=== PATIENT | male | born 1975 | race Caucasian/White ===

== ENCOUNTER 2018-07-05 00:11 | Emergency (ER) | payer OTHER ==
[~2018-07-05] VITALS: Ht 172.7 cm; Wt 95.3 kg
[2018-07-05 00:25] VITALS: BP_SYST 147
--- NOTE | 2018-07-05 00:30 | NUR ---
Patient to ER bed 3 to gown for evaluation. Side rails up.
--- NOTE | 2018-07-05 00:32 | NUR ---
Pt C/O of RLQ abdominal pain x 3 months. Pt states "he has gallstones and is here today to get it taken out". Pt denies any N/V/D, painful urination, or any other complaints at this time. Vital signs are stable, will continue to monitor.
--- NOTE | 2018-07-05 00:36 | NUR ---
ER Dr. Jackman at bedside examining patient.
[2018-07-05] MEDS ORDERED: KETOROLAC TROMETHAMINE 60 MG/2 ML VIAL IM ONE (00:45)
--- NOTE | 2018-07-05 01:00 | NUR ---
VSS, no s/s of acute distress. Resting on gurney with rails up
[2018-07-05 01:10] LABS: HEMATOCRIT 42.5 % (36-54); HEMOGLOBIN 14.4 g/dL (14.0-18.0); MEAN CORPUSCULAR HEMOGLOBIN 31 pg (27-31); MEAN CORPUSCULAR HGB CONC 34 % (32-36); MEAN CORPUSCULAR VOLUME 91 fL (79.0-98.0); RED BLOOD CELL COUNT(AUTO) 4.65 MIL/uL (4.2-6.2); RED CELL DISTRIBUTION WIDTH 12.6 % (9.0-15.0); WHITE BLOOD COUNT (AUTO) 9.3 K/uL (4.8-10.8)
[2018-07-05 01:11] LABS: BASOPHILS # (AUTO) 0.1 K/uL (0.0-0.2); BASOPHILS % (AUTO) 0.8 % (0.0-2.0); EOSINOPHILS # (AUTO) 0.3 K/uL (0.0-0.4); EOSINOPHILS % (AUTO) 2.9 % (0.0-4.0); LYMPHOCYTES # (AUTO) 1.8 K/uL (1.0-5.5); LYMPHOCYTES % (AUTO) 18.9 % (20.5-51.5); MONOCYTES # (AUTO) 0.7 K/uL (0.0-1.0); MONOCYTES % (AUTO) 7.7 % (1.7-9.3); NEUTROPHILS # (AUTO) 6.5 K/uL (1.8-7.7); NEUTROPHILS % (AUTO) 69.7 % (40.0-70.0); PLATELET COUNT (AUTO) 274 K/uL (130-430)
[2018-07-05 01:25] LABS: CREATININE 1.06 mg/dL (0.55-1.30); POTASSIUM 4.1 mmol/L (3.5-5.1)
[2018-07-05 01:29] LABS: ALBUMIN 3.6 g/dL (3.4-4.8); TOTAL BILIRUBIN 0.2 mg/dL (0.0-1.0)
[2018-07-05 01:50] VITALS: BP_SYST 128
--- NOTE | 2018-07-05 01:50 | NUR ---
Patient given written and verbal discharge instructions and verbalizes understanding. ER MD discussed with patient the results and treatment provided. Patient in stable condition. ID arm band removed. Patient educated on pain management and to follow up with PMD. Pain Scale 0/10. Opportunity for questions provided and answered. Medication side effect fact sheet provided.
== END 2018-07-05 01:50 | disposition home or self-care (01) ==
LOC: SED 00:11
DX: K80.50 Calculus of bile duct without cholangitis or cholecystitis without obstruction (principal); F12.10 Cannabis abuse, uncomplicated; R03.0 Elevated blood-pressure reading, without diagnosis of hypertension
CPT/HCPCS: 36415; 80053; 83690; 85025; 96372; 99283; J1885

== ENCOUNTER 2019-04-13 06:49 | Emergency (ER) | payer SELFPAY ==
[~2019-04-13] VITALS: Ht 172.7 cm; Wt 90.7 kg
[2019-04-13 06:52] VITALS: BP_SYST 142
--- NOTE | 2019-04-13 06:56 | NUR ---
EKG given to Dr. Mathews. Pt okay to wait in ER waiting room. Pt talking on cell phone and walking about in waiting room. NAD.
--- NOTE | 2019-04-13 07:05 | NUR ---
Pt placed to ER waiting room in stable condition.
--- NOTE | 2019-04-13 07:35 | NUR ---
Patient to ER bed 7 to gown for evaluation. Side rails up. Report given to ELOINA GEORGE
--- NOTE | 2019-04-13 07:45 | NUR ---
Pt came to ER by himself ambulatory, AO4, c/o chest pain due to coughing. V/S and EKG stable and normal, RR even and unlabored no visible distress
[2019-04-13] MEDS ORDERED: KETOROLAC TROMETHAMINE 60 MG/2 ML VIAL IM ONE (08:00)
--- NOTE | 2019-04-13 08:00 | NUR ---
Dr Daniel at bedside to assess pt
[2019-04-13 08:34] VITALS: BP_SYST 142
--- NOTE | 2019-04-13 08:43 | NUR ---
Patient given written and verbal discharge instructions and verbalizes understanding. ER MD discussed with patient the results and treatment provided. Patient in stable condition. ID arm band removed. Rx Cipro, Motrin, and Prednisone given. Patient educated on pain management and to follow up with PMD. Pain Scale 0. Opportunity for questions provided and answered. Medication side effect fact sheet provided.
== END 2019-04-13 08:43 | disposition home or self-care (01) ==
LOC: SED 06:49
DX: R07.9 Chest pain, unspecified (principal); R19.7 Diarrhea, unspecified; R05 Cough; F17.290 Nicotine dependence, other tobacco product, uncomplicated
CPT/HCPCS: 93005; 96372; 99283

== ENCOUNTER 2019-04-16 07:04 | Emergency (ER) | payer SELFPAY ==
[~2019-04-16] VITALS: Ht 172.7 cm; Wt 95.3 kg
--- NOTE | 2019-04-16 07:05 | NUR ---
Patient to ER bed hallway to gown for evaluation. Side rails up.
--- NOTE | 2019-04-16 07:20 | NUR ---
Patient is awake, alert, and oriented x4. Patient reports eating 2 [employer] prior to abdominal pain starting at 0500 today. Patient presents with abdominal pain and nausea.
[2019-04-16 07:32] VITALS: BP_SYST 165
--- NOTE | 2019-04-16 07:50 | NUR ---
ER Dr. Bravo at bedside examining patient.
[2019-04-16] MEDS ORDERED: NACL 0.9% 1,000 ML IV ONE (07:54)
[2019-04-16] MEDS ORDERED: MORPHINE 4 MG/ML INJ. SYRINGE IVP ONE (08:00)
[2019-04-16] MEDS ORDERED: DIPHENHYDRAMINE INJ 50 MG/ML VIAL IVP ONE (08:00)
[2019-04-16] MEDS ORDERED: ONDANSETRON HCL 4 MG/2 ML VIAL IVP ONE (08:00)
--- NOTE | 2019-04-16 08:15 | NUR ---
Patient placed in ER room 8.
[2019-04-16 08:23] LABS: BASOPHILS % (AUTO) 0.1 % (0.0-2.0); HEMATOCRIT 39.8 % (36-54); HEMOGLOBIN 13.9 g/dL (14.0-18.0); LYMPHOCYTES % (AUTO) 9.7 % (20.5-51.5); MEAN CORPUSCULAR HEMOGLOBIN 32 pg (27-31); MEAN CORPUSCULAR HGB CONC 35 % (32-36); MEAN CORPUSCULAR VOLUME 90 fL (79.0-98.0); MONOCYTES # (AUTO) 0.8 K/uL (0.0-1.0); MONOCYTES % (AUTO) 7.5 % (1.7-9.3); NEUTROPHILS # (AUTO) 8.5 K/uL (1.8-7.7); NEUTROPHILS % (AUTO) 82.7 % (40.0-70.0); PLATELET COUNT (AUTO) 189 K/uL (130-430); RED BLOOD CELL COUNT(AUTO) 4.41 MIL/uL (4.2-6.2); RED CELL DISTRIBUTION WIDTH 12.6 % (9.0-15.0); WHITE BLOOD COUNT (AUTO) 10.3 K/uL (4.8-10.8)
--- NOTE | 2019-04-16 08:26 | NUR ---
Patient transported to radiology via gurney, accompanied by associate technician.
--- NOTE | 2019-04-16 08:30 | NUR ---
Returned from radiology, back to [facility].
[2019-04-16 08:39] LABS: CALCIUM 7.9 mg/dL (8.4-11.0); CREATININE 0.65 mg/dL (0.55-1.30); POTASSIUM 3.6 mmol/L (3.5-5.1)
[2019-04-16 08:43] LABS: ALBUMIN 3.7 g/dL (3.4-4.8); TOTAL BILIRUBIN 0.4 mg/dL (0.0-1.0)
[2019-04-16 09:57] VITALS: BP_SYST 148
--- NOTE | 2019-04-16 09:57 | NUR ---
Patient given written and verbal discharge instructions and verbalizes understanding. ER MD discussed with patient the results and treatment provided. Patient in stable condition. ID arm band removed. IV catheter removed intact and dressing applied, no active bleeding. Rx of norco, zofran ODT given. Patient educated on pain management and to follow up with PMD. Pain Scale 0/10. Opportunity for questions provided and answered. Medication side effect fact sheet provided.
== END 2019-04-16 09:57 | disposition home or self-care (01) ==
LOC: SED 07:04
DX: K80.20 Calculus of gallbladder without cholecystitis without obstruction (principal)
CPT/HCPCS: 36415; 74018; 76700; 80053; 83690; 85025; 96374; 96375; 99284; J1200; J2270; J2405; J7030